=== PATIENT | female | born 1955 | race Two or more races ===

== ENCOUNTER → 2019-03-13 | Outpatient (CLI) | payer OTHER | END | disposition home or self-care (01) | LOC: CFH 09:11 | PROVIDERS: ATTEND Internal Medicine Cardiovascular Disease | DX: I08.8 Other rheumatic multiple valve diseases (principal); I10 Essential (primary) hypertension; E11.9 Type 2 diabetes mellitus without complications; I48.2 Chronic atrial fibrillation | CPT/HCPCS: 93306 ==

== ENCOUNTER 2019-05-04 08:37 | Day surgery (SDC) | payer OTHER ==
[~2019-05-04] VITALS: Ht 165.1 cm; Wt 63.6 kg
[2019-05-04 10:05] VITALS: BP 155/53
[2019-05-04] MEDS ORDERED: SODIUM CHLORIDE 0.9% 1,000 ML IV SCH ×2 (10:12→14:00)
[2019-05-04] MEDS ORDERED: AMLO-150 PO (10:23)
[2019-05-04] MEDS ORDERED: LOSA100T14 PO (10:23)
[2019-05-04] MEDS ORDERED: LEVO100T5 PO (10:23)
[2019-05-04] MEDS ORDERED: LINA5TAB PO (10:23)
[2019-05-04] MEDS ORDERED: POTA10TA11 PO (10:23)
[2019-05-04] MEDS ORDERED: WARF4TAB65 PO (10:23)
[2019-05-04] MEDS ORDERED: CARV6.252 PO (10:23)
[2019-05-04] MEDS ORDERED: FURO20TA3 PO (10:23)
[2019-05-04 11:20] LABS: BASOPHILS # (AUTO) 0.04 x10^3/uL (0-0.1); BASOPHILS % (AUTO) 1 % (0-1); EOSINOPHILS % (AUTO) 2 % (1-7); LYMPHOCYTES # (AUTO) 1.19 x10^3/uL (1-3.4); LYMPHOCYTES % (AUTO) 21 % (22-44); MD NO; MEAN CORPUSCULAR HEMOGLOBIN 28.7 pg (27.0-34.8); MEAN CORPUSCULAR HGB CONC 32.9 g/dL (32.4-35.8); MEAN CORPUSCULAR VOLUME 87.2 fL (80-100); MEAN PLATELET VOLUME 7.3 fL (7.4-10.4); MONOCYTES # (AUTO) 0.66 x10^3/uL (0.2-0.8); MONOCYTES % (AUTO) 12 % (2-9); NEUTROPHILS # (AUTO) 3.69 x10^3/uL (1.8-6.8); NEUTROPHILS % (AUTO) 65 % (42-75); PLATELET COUNT 167 x10^3/uL (130-400); RED BLOOD COUNT 4.11 x10^6/uL (3.82-5.3); RED CELL DISTRIBUTION WIDTH 15.4 % (9.6-15.2)
[2019-05-04 11:30] LABS: INTERNATIONAL NORMALIZED RATIO 1.82 (0.93-1.1); PROTHROMBIN TIME 18.7 Seconds (9.6-11.5)
[2019-05-04 11:31] LABS: ANION GAP 7 mmol/L (5-15); CALCIUM 8.9 mg/dL (8.5-10.1); CHLORIDE 110 mmol/L (98-107)
[2019-05-04] MEDS ORDERED: MIDAZOLAM 1 MG/ML, 2ML ONE (12:49)
[2019-05-04] MEDS ORDERED: FENTANYL PF 100 MCG/2ML ONE (12:49)
[2019-05-04] MEDS ORDERED: VERAPAMIL 2.5 MG/ML, 2ML ONE (12:49)
[2019-05-04] MEDS ORDERED: HEPARIN 1,000 UNITS/ML, 10ML ONE (12:50)
[2019-05-04] MEDS ORDERED: NITROGLYCERIN 5 MG/ML, 10ML ONE (12:50)
[2019-05-04] MEDS ORDERED: LIDOCAINE 1%, 20ML ONE (12:50)
== END 2019-05-04 15:29 | disposition home or self-care (01) ==
LOC: CACL 08:37
PROVIDERS: ATTEND Internal Medicine Cardiovascular Disease
DX: I06.0 Rheumatic aortic stenosis (principal); I06.1 Rheumatic aortic insufficiency; I48.2 Chronic atrial fibrillation; I11.0 Hypertensive heart disease with heart failure; I50.33 Acute on chronic diastolic (congestive) heart failure; E11.9 Type 2 diabetes mellitus without complications; E78.1 Pure hyperglyceridemia; Z79.01 Long term (current) use of anticoagulants; Z79.890 Hormone replacement therapy; Z79.84 Long term (current) use of oral hypoglycemic drugs; Z79.899 Other long term (current) drug therapy; Z95.2 Presence of prosthetic heart valve; Z82.49 Family history of ischemic heart disease and other diseases of the circulatory system
CPT/HCPCS: 36415; 80048; 85025; 85610; 93458; 99156; C1769; C1894; J1644; J2250; J3010; Q9967

== ENCOUNTER → 2020-09-23 | Outpatient (CLI) | payer OTHER ==
[~2020-09-23] MED LIST: AMLO-150 PO; CARV6.252 PO; ENOX60DI3 SQ; FURO20TA3 PO; IRON; LEVO100T5 PO; LINA5TAB PO; LOSA100T14 PO; METF-734 PO; MULT1TAB9 PO; POTA10TA11 PO; WARF4TAB65 PO
== END | disposition home or self-care (01) ==
LOC: CVU 10:11
PROVIDERS: ATTEND Internal Medicine Cardiovascular Disease
DX: I08.8 Other rheumatic multiple valve diseases (principal); I11.9 Hypertensive heart disease without heart failure; R06.02 Shortness of breath; I65.29 Occlusion and stenosis of unspecified carotid artery
CPT/HCPCS: 93306